=== PATIENT | female | born 1935 | race Asian ===

== ENCOUNTER → 2017-03-13 | Outpatient (CLI) | payer MEDICARE, OTHER ==
[~2017-03-13] VITALS: Ht 144.8 cm; Wt 41.5 kg
[~2017-03-13] MED LIST: ALEN70TA48 PO; AMLO-511 PO; ASPI-556 PO; ATOR20TA86 PO; EZET10 PO; HYDR25TA PO; LOSA50TA37 PO; METO25 PO
[2017-03-13 10:15] VITALS: BP 173/80
== END | disposition home or self-care (01) ==
LOC: SRCNTR 09:32
PROVIDERS: ATTEND Internal Medicine Clinical Cardiac Electrophysiology
DX: R55 Syncope and collapse (principal); E11.9 Type 2 diabetes mellitus without complications; I10 Essential (primary) hypertension; E78.5 Hyperlipidemia, unspecified; Z79.82 Long term (current) use of aspirin
CPT/HCPCS: G0463